=== PATIENT | male | born 1995 | race Caucasian/White ===

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

== ENCOUNTER 2017-05-19 19:39 | Emergency (ER) | payer OTHER ==
[~2017-05-19] VITALS: Ht 180.3 cm; Wt 95.3 kg
--- NOTE | ~2017-05-19 | EKG ---
[address] [address] ELECTROCARDIOGRAM REPORT Name: JUMANA HAN Room #: [facility]#: [id number] Admission: 05/19/17 Attend Phys: Discharge: 05/19/17 Date of : [birth year] Report #: [id number] THIS REPORT FOR: //name// [facility] ED Test Date: 2017-05-19 Test Time: 19:57:01 Pat Name: JUMANA HAN Department: Room: Gender: Online Content Coordinator: JCLIFTERIKA : 1995 Requested By: Joaquin Gillespie Order Number: [id number] MD: Jamir Reyes Measurements Intervals [place] Rate: 98 P: 87 MT: 140 QRS: 68 QRSD: 86 T: 34 QT: 348 QTc: 445 Interpretive Statements Sinus rhythm Normal tracing No previous ECG available for comparison Electronically Signed On 05-20-2017 9:02:46 MAT PUNCHER by Jamir Reyes [email or web address] <ELECTRONICALLY SIGNED> By: Jamir Reyes MD, [facility] 05/20/17901 56 56 Jamir Reyes MD, FACC /EPI
[~2017-05-19 19:39] MED LIST changes: +KEFLEX500 MG PO
[2017-05-19] MEDS ORDERED: PEPCID20 MG PO (20:40)
[2017-05-19] MEDS ORDERED: PREDNISONE 20 M20 MG PO (20:40)
== END 2017-05-19 21:24 | disposition home or self-care (01) ==
LOC: ER 19:39
DX: T78.02XA Anaphylactic reaction due to shellfish (crustaceans), initial encounter (principal); J45.21 Mild intermittent asthma with (acute) exacerbation; F17.210 Nicotine dependence, cigarettes, uncomplicated; X58.XXXA Exposure to other specified factors, initial encounter

== ENCOUNTER 2019-10-19 22:57 | Emergency (ER) | payer OTHER ==
[~2019-10-19] VITALS: Ht 167.6 cm; Wt 104.3 kg
[~2019-10-19 22:57] MED LIST changes: +PEPCID20 MG PO
[2019-10-19 23:38] LABS: ABSOLUTE NEUTROPHILS 5.5 thou/uL (1.4-8.2); BASOPHILS 0.2 % (0.0-2.0); EOSINOPHILS 0.5 % (0.0-3.0); HEMATOCRIT 49.9 % (42.0-52.0); HEMOGLOBIN 17.6 gm/dL (14.0-18.0); LYMPHOCYTES 32.7 % (24.0-44.0); MCH 29.8 pg (26.0-34.0); MCHC 35.3 g/dL (28.0-37.0); MCV 84.5 fL (80.0-100.0); MONOCYTES 8.2 % (1.0-8.0); PLATELET COUNT 212 thou/uL (150-400); POLYS 58.4 % (36.0-66.0); RDW 13.5 % (10.5-14.5); WBC 9.4 thou/uL (4.0-11.0)
[2019-10-19 23:53] LABS: CALCIUM 9.7 mg/dL (8.5-10.1); CREATININE 1.3 mg/dL (0.7-1.3); POTASSIUM 3.3 mmol/L (3.5-5.1)
[2019-10-19 23:55] LABS: URINE BILIRUBIN 1+ (Negative); URINE BLOOD NEGATIVE (Negative); URINE CLARITY CLEAR; URINE COLOR YELLOW; URINE GLUCOSE-RANDOM* NEGATIVE (Negative); URINE KETONES 1+ (Negative); URINE LEUKOCYTES-REFLEX NEGATIVE (Negative); URINE NITRITE-REFLEX NEGATIVE (Negative); URINE PROTEIN (DIPSTICK) 1+ (Negative); URINE SPECIFIC GRAVITY >= 1.030 (1.005-1.035); URINE UROBILINOGEN 0.2 E.U./dl (0.2-1.0)
[2019-10-19 23:58] LABS: TOTAL BILIRUBIN 1.5 mg/dL (0.2-1.0); TOTAL PROTEIN 8.8 g/dL (6.4-8.2)
[2019-10-20 00:01] LABS: ICTOTEST (BILI CONFIRMATORY) Positive (Negative)
[2019-10-20 00:04] LABS: BACTERIA-REFLEX None Seen /HPF (None Seen); CASTS None Seen /LPF (None Seen); CRYSTALS None Seen /LPF (None Seen); MUCUS 4-6 Moderate strn/LPF (None Seen); SQUAMOUS None Seen /LPF (0-3); URINE RBC None Seen /HPF (0-2); URINE WBC-REFLEX None Seen /HPF (0-5)
[2019-10-20 00:08] LABS: AMP/METHAMP Negative (Negative); BARBITURATES Negative (Negative); BENZODIAZEPINES Negative (Negative); COCAINE Negative (Negative); METHADONE Negative (Negative); OPIATES Negative (Negative); PCP Negative (Negative)
[2019-10-20] MEDS ORDERED: LEVSIN0.125 MG PO (00:46)
[2019-10-20] MEDS ORDERED: TRAMADOL 50 MG50 MG PO (00:46)
[2019-10-20] MEDS ORDERED: ONDANSETRON ODT8 MG PO (00:46)
[2019-10-20 01:11] VITALS: BP 131/53
== END 2019-10-20 01:22 | disposition home or self-care (01) ==
LOC: ER 22:57
PROVIDERS: Emergency Medicine
DX: R10.31 Right lower quadrant pain (principal); R11.2 Nausea with vomiting, unspecified; J45.909 Unspecified asthma, uncomplicated; F17.210 Nicotine dependence, cigarettes, uncomplicated; Z79.899 Other long term (current) drug therapy

== ENCOUNTER 2019-12-17 09:52 | Emergency (ER) | payer OTHER ==
[~2019-12-17] VITALS: Ht 170.2 cm; Wt 96.2 kg
[~2019-12-17 09:52] MED LIST changes: +LEVSIN0.125 MG PO; +ONDANSETRON ODT8 MG PO; +TRAMADOL 50 MG50 MG PO
[2019-12-17 10:27] LABS: ABSOLUTE NEUTROPHILS 2.3 thou/uL (1.4-8.2); BASOPHILS 0.4 % (0.0-2.0); EOSINOPHILS 3.4 % (0.0-3.0); HEMATOCRIT 45.7 % (42.0-52.0); MCH 29.5 pg (26.0-34.0); MCHC 34.9 g/dL (28.0-37.0); MCV 84.3 fL (80.0-100.0); PLATELET COUNT 169 thou/uL (150-400); POLYS 46.2 % (36.0-66.0); RBC 5.42 mil/uL (4.50-6.00); RDW 13.2 % (10.5-14.5); WBC 4.9 thou/uL (4.0-11.0)
[2019-12-17 10:37] LABS: CALCIUM 9.6 mg/dL (8.5-10.1)
[2019-12-17 10:40] LABS: ALBUMIN 4.2 g/dL (3.4-5.0); TOTAL BILIRUBIN 0.6 mg/dL (0.2-1.0); TOTAL PROTEIN 7.3 g/dL (6.4-8.2)
[2019-12-17] MEDS ORDERED: TRAMADOL 50 MG50 MG PO (10:58)
[2019-12-17 11:15] VITALS: BP 117/64
== END 2019-12-17 11:15 | disposition home or self-care (01) ==
LOC: ER 09:52
PROVIDERS: Emergency Medicine
DX: R25.2 Cramp and spasm (principal); R10.9 Unspecified abdominal pain; R11.10 Vomiting, unspecified; J45.909 Unspecified asthma, uncomplicated; F17.210 Nicotine dependence, cigarettes, uncomplicated

== ENCOUNTER 2020-05-24 10:45 | Emergency (ER) | payer OTHER ==
[~2020-05-24] VITALS: Ht 172.7 cm; Wt 90.7 kg
[2020-05-24 11:03] LABS: URINE BILIRUBIN 2+ (Negative); URINE BLOOD NEGATIVE (Negative); URINE CLARITY CLEAR; URINE COLOR YELLOW; URINE GLUCOSE-RANDOM* NEGATIVE (Negative); URINE KETONES 1+ (Negative); URINE LEUKOCYTES-REFLEX TRACE (Negative); URINE PROTEIN (DIPSTICK) 1+ (Negative)
[2020-05-24 11:12] LABS: ICTOTEST (BILI CONFIRMATORY) Positive (Negative); URINE NITRITE-REFLEX POSITIVE (Negative)
[2020-05-24 11:15] LABS: ABSOLUTE NEUTROPHILS 3.9 thou/uL (1.4-8.2); BASOPHILS 0.3 % (0.0-2.0); EOSINOPHILS 2.6 % (0.0-3.0); HEMATOCRIT 47.4 % (42.0-52.0); HEMOGLOBIN 16.4 gm/dL (14.0-18.0); LYMPHOCYTES 19.7 % (24.0-44.0); MCH 28.7 pg (26.0-34.0); MCHC 34.6 g/dL (28.0-37.0); MCV 83.1 fL (80.0-100.0); PLATELET COUNT 172 thou/uL (150-400); POLYS 67.4 % (36.0-66.0); RDW 13.2 % (10.5-14.5); WBC 5.8 thou/uL (4.0-11.0)
[2020-05-24 11:21] LABS: CALCIUM OXALATE >10 Many /LPF (None Seen); CASTS None Seen /LPF (None Seen); CRYSTALS None Seen /LPF (None Seen); SQUAMOUS None Seen /LPF (0-3); URINE RBC 0-2 Rare /HPF (0-2); URINE WBC-REFLEX 0-5 Rare /HPF (0-5)
[2020-05-24 11:22] LABS: BACTERIA-REFLEX 1-9 Few /HPF (None Seen)
[2020-05-24] MEDS ORDERED: NOHOMEMEDICATIONS (11:31)
[2020-05-24 11:33] LABS: CALCIUM 9.4 mg/dL (8.5-10.1); CREATININE 1.2 mg/dL (0.7-1.3); POTASSIUM 3.6 mmol/L (3.5-5.1)
[2020-05-24 11:39] LABS: ALBUMIN 4.1 g/dL (3.4-5.0); TOTAL BILIRUBIN 1.7 mg/dL (0.2-1.0); TOTAL PROTEIN 7.5 g/dL (6.4-8.2)
[2020-05-24] MEDS ORDERED: ONDANSETRON HCL4 M2 PO (12:49)
[2020-05-24] MEDS ORDERED: ULTRAM 50MG TAB50 MG PO (12:49)
[2020-05-24] MEDS ORDERED: KEFLEX500 M1 PO (12:49)
[2020-05-24 12:57] VITALS: BP 129/67
== END 2020-05-24 13:06 | disposition home or self-care (01) ==
LOC: ER 10:45
PROVIDERS: Physician Assistant
DX: R16.1 Splenomegaly, not elsewhere classified (principal); R59.1 Generalized enlarged lymph nodes; R11.2 Nausea with vomiting, unspecified; R19.7 Diarrhea, unspecified; R10.11 Right upper quadrant pain; R10.31 Right lower quadrant pain; J45.909 Unspecified asthma, uncomplicated; F17.210 Nicotine dependence, cigarettes, uncomplicated; Z91.013 Allergy to seafood